=== PATIENT | female | born 1970 | race Caucasian/White ===

== ENCOUNTER 2020-09-08 10:22 | Outpatient (REF) | payer MEDICARE, MEDICAID, SELFPAY ==
[2020-09-08 15:35] LABS: TSH 16.31 uIU/mL (0.36-3.74)
== END 2020-09-08 10:23 | disposition home or self-care (01) ==
LOC: NCHCN 10:22
PROVIDERS: PCP Physician Assistant; Visit Provider Physician Assistant
DX: E03.9 Hypothyroidism, unspecified (principal)
CPT/HCPCS: 84443

== ENCOUNTER 2020-11-09 19:27 | Outpatient (REF) | payer MEDICARE, MEDICAID, SELFPAY ==
[2020-11-09 17:07] LABS: TSH 3.36 uIU/mL (0.36-3.74)
== END 2020-11-09 19:28 | disposition home or self-care (01) ==
LOC: NCHCN 19:27
PROVIDERS: PCP Physician Assistant; Visit Provider Physician Assistant
DX: E03.9 Hypothyroidism, unspecified (principal)
CPT/HCPCS: 84443

== ENCOUNTER 2021-11-17 21:10 | Outpatient (REF) | payer MEDICARE, MEDICAID, SELFPAY ==
[2021-11-17 20:38] LABS: TSH 7.99 uIU/mL (0.36-3.74); Uric Acid 5.8 mg/dL (2.6-6.0)
== END 2021-11-17 21:11 | disposition home or self-care (01) ==
LOC: LBN 21:10
PROVIDERS: PCP Physician Assistant; Visit Provider Physician Assistant
DX: E03.9 Hypothyroidism, unspecified (principal); M25.561 Pain in right knee
CPT/HCPCS: 84443; 84550

== ENCOUNTER 2022-01-25 18:47 | Outpatient (REF) | payer OTHER, MEDICAID, SELFPAY ==
[2022-01-25 15:13] LABS: Anion Gap 9.5 mmol/L (3-11); BUN 33 mg/dL (7-18); CO2 27.5 mmol/L (21.0-32.0); CREATININE 1.3 mg/dL (0.55-1.02); Chloride 101 mmol/L (98-107); Estimated GFR 43.54 (mL/min/1.73m2); Glucose 107 mg/dL (74-106); Potassium 4.4 mmol/L (3.5-5.1); Sodium 138 mmol/L (136-145); TSH 20.44 uIU/mL (0.36-3.74)
== END 2022-01-25 18:48 | disposition home or self-care (01) ==
LOC: NCHCN 18:47
PROVIDERS: PCP Physician Assistant; Visit Provider Physician Assistant
DX: E03.9 Hypothyroidism, unspecified (principal)
CPT/HCPCS: 80048; 84443

== ENCOUNTER 2022-07-26 16:42 | Outpatient (REF) | payer OTHER, MEDICAID, SELFPAY ==
[2022-07-26 19:32] LABS: Anion Gap 8.8 mmol/L (3-11); BUN 12 mg/dL (7-18); CO2 26.2 mmol/L (21.0-32.0); CREATININE 1.1 mg/dL (0.55-1.02); Calcium 9.6 mg/dL (8.5-10.1); Chloride 104 mmol/L (98-107); Glucose 120 mg/dL (74-106); Potassium 4.8 mmol/L (3.5-5.1); Sodium 139 mmol/L (136-145)
== END 2022-07-26 16:43 | disposition home or self-care (01) ==
LOC: NCHCN 16:42
PROVIDERS: PCP Physician Assistant; Visit Provider Nurse Practitioner Family
DX: R94.4 Abnormal results of kidney function studies (principal); R73.09 Other abnormal glucose
CPT/HCPCS: 80048

== ENCOUNTER 2022-12-03 15:31 | Emergency (ER) | payer MEDICARE, MEDICAID, SELFPAY ==
[2022-12-03 15:34] VITALS: BP 136/91; PULSE 107; RESP 18; TEMP 37.2; O2SAT 92
--- NOTE | 2022-12-03 15:43 | ED.GENADUL_ITS ---
Discharge Plan Disposition Patient Disposition: Home Condition: Improving Discharge Details Clinical Impression: Low back pain radiating to both legs Primary Care Provider: Rico Szymanski ED Provider: Silvestre Metz Meds and New Rx's Prescriptions: New prednisone 20 mg tablet 40 mg PO DAILY Qty: 8 0RF Rx Instructions: to start 12/04/22 hydrocodone-acetaminophen 10-325 mg tablet 1 tab PO Q6H PRN (Reason: pain) Qty: 10 0RF orphenadrine citrate 100 mg tablet extended release 100 mg PO BID Qty: 10 0RF lidocaine 5 % adhesive patch,medicated 1 patch topical DAILY Qty: 15 0RF Rx Instructions: leave on most painful area for up to 12 hrs Continued clonazepam [Klonopin] 0.5 mg Tablet 0.5 mg PO BID quetiapine [Seroquel] 200 mg Tablet 200 mg PO TID levothyroxine 100 mcg Tablet 100 mcg PO DAILY albuterol 90 mcg/actuation Aerosol 90 mcg INHALATION PRN PRN lamotrigine [Lamictal] 100 mg Tablet 100 mg PO BID Discharge Instructions Instructions: Sciatica (ED) Additional Instructions: You presented to the ED with low back pain radiating down both legs consistent with sciatica. We will continue to prednisone and she cannot take nonsteroidals and this will help with inflammation. You may take hydrocodone with acetaminophen every 6 hours. Take an extra strength Tylenol with the prescribed hydrocodone when you needed. We will also prescribe orphenadrine for muscle relaxation and lidocaine patch to help with discomfort. You will need to follow-up with primary care on Monday. Return to the ED for any bladder or bowel dysfunction, weakness, numbness, other concerns. Medical Decision Making Patient presenting with low back pain radiating down the both legs suggestive of sciatica. She is intact with normal strength and sensation and no bladder or bowel complaints. She has difficulty ambulating because of pain. Reports being unable to take nonsteroidals. I did look her up on the [facility] site. Patient has been on Suboxone in the past for pain control per the patient not for any drug addiction problems. It did not work so she has not been on anything for the past month. Patient given IM injection of orphenadrine and oral hydrocodone/acetaminophen. Patient reports some improvement but not a lot. Lidocaine patch applied and 500 of acetaminophen given. Patient improved at this point with continued pain but much more tolerable. Discussed follow-up with primary care on Monday. We will continue on steroids for presumed inflammation causing the sciatica. Will give regimen for 10 hydrocodone/acetaminophen, orphenadrine. I did review her dater in the [facility] site. Will supplement with acetaminophen. We will also prescribe lidocaine patches. Return precautions provided. HPI General Mode of arrival: wheelchair . Date/Time Provider Initiated Documentation: 12/03/22 15:40 . Limitations to Documentation: no limitations . Information obtained by: patient . HPI Narrative: Patient presents to ED with complaint of low back pain radiating down both legs. Pain began 2 or 3 days ago and is atraumatic. She does have a history of back pain and degenerative disc disease. She denies any numbness, weakness, bladder or bowel dysfunction, abdominal pain, fever. She was seen at [facility] earlier today and was given prednisone orally and discharged with cyclobenzaprine. Patient and family unhappy with care at [facility]. She is unable to take nonsteroidals. Related Data Home Medications Medication Instructions Recorded Confirmed albuterol 90 mcg/actuation aerosol 90 mcg inhalation PRN PRN 12/03/22 12/03/22 inhaler clonazepam 0.5 mg tablet (Klonopin) 0.5 mg PO BID 12/03/22 12/03/22 hydrocodone 10 mg-acetaminophen 1 tab PO Q6H PRN pain #10 tabs 12/03/22 325 mg tablet lamotrigine 100 mg tablet 100 mg PO BID 12/03/22 12/03/22 (Lamictal) levothyroxine 100 mcg tablet 100 mcg PO DAILY 12/03/22 12/03/22 lidocaine 5 % topical patch 1 patch topical DAILY #15 ea 12/03/22 orphenadrine citrate 100 mg 100 mg PO BID #10 tabs 12/03/22 tablet,extended release prednisone 20 mg tablet 40 mg PO DAILY #8 tabs 12/03/22 quetiapine 200 mg tablet (Seroquel) 200 mg PO TID 12/03/22 12/03/22 Previous Rx's Medication Instructions Recorded hydrocodone 10 mg-acetaminophen 1 tab PO Q6H PRN pain #10 tabs 12/03/22 325 mg tablet lidocaine 5 % topical patch 1 patch topical DAILY #15 ea 12/03/22 orphenadrine citrate 100 mg 100 mg PO BID #10 tabs 12/03/22 tablet,extended release prednisone 20 mg tablet 40 mg PO DAILY #8 tabs 12/03/22 Allergies Allergy/AdvReac Type Severity Reaction Status Date / Time erythromycin base Allergy Unverified 12/03/22 15:37 Penicillins Allergy Unverified 12/03/22 15:37 Sulfa (Sulfonamide Allergy Unverified 12/03/22 15:37 Antibiotics) NSAIDS (Non-Steroidal AdvReac Skin Rash Unverified 12/03/22 16:51 Anti-Inflamma General Stated Complaint: Nk/Back Pain CLAYTON: 3 Review of Systems Narrative: Per HPI PFSH All Active Problems (Updated 12/03/22 @ 17:21 by Silvestre Metz MD) Low back pain radiating to both legs (Acute) Medical History History of behavioral and mental health problems Thyroid disease Social History Smoking/Tobacco Use Status: Current every day Tobacco Type: cigarettes Smoking risk assessment performed?: Yes Alcohol Intake: never Drug use: Occasionally Substance use type: marijuana Exam Narrative Exam Narrative: Const: Obese female in NAD. HEENT: NC/AT. Normal facial exam. Eyes: Normal conjunctiva and sclera. Neck: Supple. Trachea midline. Lungs: Normal respiratory effort. Cor: RRR. Good radial pulses. Back: Lumbar pain with movement, no midline tenderness. Neuro: A+O x 3. Normal speech, mentation. Cranial nerves II - XII grossly intact. No gross motor or sensory deficit. BLE strength is normal. Sensation in tact. Ext: No C/C/E. Course Vital Signs Vital signs: Vital Signs Temperature 98.9 F 12/03/22 15:34 Pulse 107 H 12/03/22 15:34 Respiratory Rate 18 12/03/22 15:34 Blood Pressure 136/91 H 12/03/22 15:34 Pulse Oximetry 92 12/03/22 15:34 Temperature 98.9 F 12/03/22 15:34 Temperature Source Oral 12/03/22 15:34 Pulse 107 H 12/03/22 15:34 Respiratory Rate 18 12/03/22 15:34 Respiratory Effort Normal, Non-Labored 12/03/22 15:36 Blood Pressure 136/91 H 12/03/22 15:34 Pulse Oximetry 92 12/03/22 15:34 Oxygen Delivery Method Room Air 12/03/22 15:34 Oxygen Flow Rate 0 12/03/22 15:34
[2022-12-03] MEDS: HYDROcodone 10/Acetaminophen 325 TAB PO (16:13)
[2022-12-03] MEDS: Orphenadrine 60 MG/2 ML VIAL IM (16:13)
[2022-12-03] MEDS: Acetaminophen 500 MG TAB PO (16:55)
[2022-12-03] MEDS: Lidocaine 5% Patch 1 PATCH TP (16:57)
[2022-12-03 17:38] VITALS: BP 130/85; PULSE 107; RESP 18; TEMP 37.2; O2SAT 92
== END 2022-12-03 17:42 | disposition home or self-care (01) ==
PROVIDERS: Emergency Provider Emergency Medicine; PCP Internal Medicine
DX: M54.59 Other low back pain (principal)
CPT/HCPCS: 96372; 99284; J2360; J3490

== ENCOUNTER 2022-12-18 13:00 | Emergency (ER) | payer MEDICARE, MEDICAID, SELFPAY ==
[2022-12-18] VITALS (38 sets, daily range): BP systolic 87–124; BP diastolic 43–76; PULSE 74–142; RESP 16–20; O2SAT 81–96
--- NOTE | 2022-12-18 13:59 | DI.CT_ITS ---
Exam(s) CT THORACIC LUMBAR SPINE WO EXAM: CT THORACIC LUMBAR SPINE WO CLINICAL HISTORY: back pain, difficulty amb, radiating bilat. TECHNIQUE: Imaging Protocol: Axial computed tomography images with coronal and sagittal reformatted images were created and reviewed. COMPARISON: No exams were available for comparison FINDINGS: The examination is limited due to patient motion artifact. Bones: No fractures or dislocations are seen. In the thoracic spine, multilevel degenerative changes are present. No acute fractures or subluxations are seen. In the lumbar spine, there is mild retrol isthesis of L2 on L3, L3 on L4 and L5 on S1. Multilevel degenerative changes are seen with joint spac e narrowing, vacuum discs and endplate osteophytes. Facet arthropathy is present. There is mild daisha tral spinal canal at L2-3 and L4-L5. Multilevel neural foraminal stenosis is seen. Soft tissues: Note is made of fatty infiltration of the liver and right nephrolithiasis. Emphysemato us changes are seen in the lungs. IMPRESSION: 1. No acute fracture or subluxation in the thoracic or lumbar spine. 2. Multilevel degenerative changes are seen in the thoracic and lumbar spine as described above. 3. Consider MRI of the lumbar spine for further evaluation. RADIATION DOSE DELIVERED: 2,296.32mGy.cm Total DLP DATA REPOSITORY: All CT scans at this facility are submitted to the National Radiology Data Registry (NRDR) Dose Index Registry (DIR) with the [employer] ([employer]). RADIATION OPTIMIZATION: All CT scans at this facility use at least one of these dose optimization te chniques: automated exposure control; mA and/or kV adjustment per patient size (includes targeted exa ms where dose is matched to clinical indication); or iterative reconstruction.
[2022-12-18] MEDS: Orphenadrine 60 MG/2 ML VIAL IVP (14:02)
[2022-12-18] MEDS: Dexamethasone 4 MG/ML VIAL IVP (14:02)
[2022-12-18 14:14] LABS: Abs Immature Grans 0.06 10^3/uL (0.0-0.06); Absolute Basophil Count 0.04 10^3/uL (0.0-0.2); Absolute Eosinophil Count 0.01 10^3/uL (0.0-0.7); Absolute Lymphocyte Count 2.34 10^3/uL (1.2-3.4); Absolute Monocyte Count 0.77 10^3/uL (0.1-0.8); Absolute Neutrophil Count 7.15 10^3/uL (1.2-6.7); Basophils % 0.4; Eosinophils % 0.1; HCT 48.3 % (36.0-46.0); HGB 15.9 g/dL (11.2-15.7); Immature Grans % 0.6; Lymphocytes % 22.6; MCH 31.5 pg (27.0-33.0); MCHC 32.9 % (32.0-36.0); MCV 96 fL (80-95); MPV 9.8 fL (8.0-11.0); Monocytes % 7.4; Neutrophils % 68.9; Platelet Count 203 10^3/uL (130-400); RBC 5.04 10^6/uL (3.93-5.22); RDW 14.8 % (11.7-14.6); RDW-SD 52.5 fL; WBC 10.37 10^3/uL (4.4-10.8)
--- NOTE | 2022-12-18 14:33 | NUR.NOTE ---
Nursing Note: patient requesting pain medications they gave me vicodin last time; provider notified.
--- NOTE | 2022-12-18 14:40 | DI.VRAD_ITS ---
PROCEDURE INFORMATION: Exam: CT Thoracic Spine Without Contrast Exam date and time: 12/18/2022 1:51 PM Age: 52 years old Clinical indication: Other: Back pain, difficulty amb, radiating bilat TECHNIQUE: Imaging protocol: Computed tomography of the thoracic spine without contrast. Radiation optimization: All CT scans at this facility use at least one of these dose optimization techniques: automated exposure control; mA and/or kV adjustment per patient size (includes targeted exams where dose is matched to clinical indication); or iterative reconstruction. COMPARISON: No relevant prior studies available. FINDINGS: Bones/joints: Alignment of the spine is normal. There are no acute fractures. Multilevel mild degenerative spondylosis changes. Soft tissues: Unremarkable. Lungs: Emphysematous lung disease. IMPRESSION: 1. No acute findings. 2. Emphysematous lung disease. PROCEDURE INFORMATION: Exam: CT Lumbar Spine Without Contrast Exam date and time: 12/18/2022 1:51 PM Age: 52 years old Clinical indication: Other: Back pain, difficulty amb, radiating bilat TECHNIQUE: Imaging protocol: Computed tomography of the lumbar spine without contrast. Radiation optimization: All CT scans at this facility use at least one of these dose optimization techniques: automated exposure control; mA and/or kV adjustment per patient size (includes targeted exams where dose is matched to clinical indication); or iterative reconstruction. COMPARISON: No relevant prior studies available. FINDINGS: Bones/joints: Retrolisthesis L2 on L3, L3 on L4 and L5 on S1. No acute fractures. Disc degeneration with vacuum disc L2-L3, L4-L5 and L5-S1. Multilevel foraminal stenosis. Mild central canal narrowing L2-L3 and L4-L5. Liver: Fatty infiltration of the liver. Kidneys and ureters: Right nephrolithiasis. Soft tissues: Unremarkable. IMPRESSION: Multilevel disc degeneration. Multilevel foraminal narrowing. Consider MRI of the lumbar spine for further evaluation. Dictated and Authenticated by: Nahun Ramirez MD. Ordering:JOHN Liu MD
[2022-12-18 14:51] LABS: ALT 52 U/L (14-59); AST 31 U/L (15-37); Alkaline Phosphatase 112 U/L (46-116); Anion Gap 7.2 mmol/L (3-11); BUN 9 mg/dL (7-18); Bilirubin, Total 0.3 mg/dL (0.2-1.0); CO2 27.8 mmol/L (21.0-32.0); CREATININE 1.1 mg/dL (0.55-1.02); Calcium 9.1 mg/dL (8.5-10.1); Chloride 102 mmol/L (98-107); Estimated GFR 61.22 (mL/min/1.73m2); Glucose 205 mg/dL (74-106); Potassium 3.4 mmol/L (3.5-5.1); Sodium 137 mmol/L (136-145); Total Protein 6.9 g/dL (6.4-8.2)
[2022-12-18] MEDS: oxyCODONE 5 MG TAB PO (14:53)
--- NOTE | 2022-12-18 14:55 | ED.GENADUL_ITS ---
Discharge Plan Disposition Patient Disposition: Home Discharge Details Clinical Impression: Back pain Primary Care Provider: Silvestre Lakhani ED Provider: Alexa Luke Home Meds and New Rx's Prescriptions: New dexamethasone 4 mg tablet 4 mg PO DAILY Qty: 7 0RF Rx Instructions: Take 1 tab daily for 5 days followed by half a tab daily for 3 days and then discontinue Continued prazosin [Minipress] 5 mg Capsule 5 mg PO HS clonazepam [Klonopin] 0.5 mg Tablet 0.5 mg PO BID quetiapine [Seroquel] 200 mg Tablet 200 mg PO TID levothyroxine 100 mcg Tablet 100 mcg PO DAILY albuterol 90 mcg/actuation Aerosol 90 mcg INHALATION PRN PRN lamotrigine [Lamictal] 100 mg Tablet 100 mg PO BID prednisone 20 mg tablet 40 mg PO DAILY Qty: 8 0RF Rx Instructions: to start 12/04/22 hydrocodone-acetaminophen 10-325 mg tablet 1 tab PO Q6H PRN (Reason: pain) Qty: 10 0RF orphenadrine citrate 100 mg tablet extended release 100 mg PO BID Qty: 10 0RF lidocaine 5 % adhesive patch,medicated 1 patch topical DAILY Qty: 15 0RF Rx Instructions: leave on most painful area for up to 12 hrs Discharge Instructions Instructions: Back Pain (ED) Additional Instructions: I placed you on the list to follow-up with pain management Please take the prednisone as prescribed, please have your blood sugar rechecked by your doctor is mildly elevated, prednisone and Decadron can sometimes increase your blood sugar so this should definitely be rechecked within a week of completing your Decadron Take the Valium that you are prescribed at your visit yesterday as needed, be cautious because this is addictive and please follow-up with your doctor for MRI and pain management Take a multivitamin supplement daily Referrals: Silvestre Lakhani [Primary Care Provider] - Discharge Data Discharge Date/Time-TO BE ENTERED AT DEPARTURE: 12/18/22 15:21 Medical Decision Making 52-year-old female is a return visit to her facility with report of back pain with radiation and reporting paresthesias She appears uncomfortable on assessment, given her age and current complaints, I did a complete neurological assessment including rectal exam which showed adequate rectal tone, no saddle anesthesia, DTRs intact to bilateral lower extremities, strength and sensation intact distally Exam at time of my assessment is inconsistent with cauda equina syndrome, I did order CT scan which shows evidence of foraminal stenosis, patient was encouraged to follow-up with the MRI that is scheduled She was given a taper of Decadron I also reviewed her PDMP and it looks like she was actually evaluated at [facility] yesterday and given Valium so no additional controlled substances will be initiated at this time Patient was not forthcoming with being evaluated yesterday at [facility] of note Patient discharged home in stable condition with stable vitals, exam inconsistent with cauda equina syndrome, with close outpatient follow-up recommended Placed on pain care referral list Return precautions reviewed and patient expressed understanding HPI General Date/Time Provider Initiated Documentation: 12/18/22 13:09 . HPI Narrative: This 52-year-old female presents with chronic back pain with radiation down bilateral legs, states she has paresthesias in her upper pelvic region and leg spasms. She reportedly was evaluated 2 weeks ago and had excellent care at our facility which she received steroids and opiate analgesia. She states the steroids helped her pain. She denies any changes in bowel or bladder, she denies any new weakness to her extremities. She uses a walker with ambulation. She denies any new falls or injuries. Related Data Home Medications Medication Instructions Recorded Confirmed albuterol 90 mcg/actuation aerosol 90 mcg inhalation PRN PRN 12/03/22 12/18/22 inhaler clonazepam 0.5 mg tablet (Klonopin) 0.5 mg PO BID 12/03/22 12/18/22 hydrocodone 10 mg-acetaminophen 1 tab PO Q6H PRN pain #10 tabs 12/03/22 325 mg tablet lamotrigine 100 mg tablet 100 mg PO BID 12/03/22 12/18/22 (Lamictal) levothyroxine 100 mcg tablet 100 mcg PO DAILY 12/03/22 12/18/22 lidocaine 5 % topical patch 1 patch topical DAILY #15 ea 12/03/22 orphenadrine citrate 100 mg 100 mg PO BID #10 tabs 12/03/22 tablet,extended release prednisone 20 mg tablet 40 mg PO DAILY #8 tabs 12/03/22 quetiapine 200 mg tablet (Seroquel) 200 mg PO TID 12/03/22 12/18/22 dexamethasone 4 mg tablet 4 mg PO DAILY #7 tabs 12/18/22 prazosin 5 mg capsule (Minipress) 5 mg PO HS 12/18/22 12/18/22 Previous Rx's Medication Instructions Recorded hydrocodone 10 mg-acetaminophen 1 tab PO Q6H PRN pain #10 tabs 12/03/22 325 mg tablet lidocaine 5 % topical patch 1 patch topical DAILY #15 ea 12/03/22 orphenadrine citrate 100 mg 100 mg PO BID #10 tabs 12/03/22 tablet,extended release prednisone 20 mg tablet 40 mg PO DAILY #8 tabs 12/03/22 dexamethasone 4 mg tablet 4 mg PO DAILY #7 tabs 12/18/22 Allergies Allergy/AdvReac Type Severity Reaction Status Date / Time erythromycin base Allergy Unverified 12/03/22 15:37 Penicillins Allergy Unverified 12/03/22 15:37 Sulfa (Sulfonamide Allergy Unverified 12/03/22 15:37 Antibiotics) ketorolac [From Toradol] AdvReac Skin Rash Unverified 12/18/22 13:29 NSAIDS (Non-Steroidal AdvReac Skin Rash Unverified 12/03/22 16:51 Anti-Inflamma tramadol AdvReac Skin Rash Unverified 12/18/22 13:29 General Stated Complaint: Orthopedic CLAYTON: 3 PFSH All Active Problems (Updated 12/18/22 @ 15:01 by VANDANA Justice) Low back pain radiating to both legs (Acute) Back pain (Acute) Medical History History of behavioral and mental health problems Thyroid disease Social History Smoking/Tobacco Use Status: Current every day Tobacco Type: cigarettes Years smoked: 37 Smoking risk assessment performed?: Yes Alcohol Intake: never Drug use: Occasionally Substance use type: marijuana Housing: house Do you feel safe at home: Yes Do you feel safe in your relationship?: Yes Course Vital Signs Vital signs: Vital Signs Pulse 83 12/18/22 13:06 Respiratory Rate 20 12/18/22 13:06 Blood Pressure 115/67 12/18/22 13:06 Pulse Oximetry 94 12/18/22 13:06 Pulse 76 12/18/22 14:52 Respiratory Rate 18 12/18/22 14:52 Respiratory Effort Normal, Non-Labored 12/18/22 13:13 Blood Pressure 112/67 12/18/22 14:52 Blood Pressure Mean 62 12/18/22 14:11 Pulse Oximetry 95 12/18/22 14:52 Oxygen Delivery Method Room Air 12/18/22 14:52 Oxygen Flow Rate 0 12/18/22 14:52 Pain Level 9 12/18/22 14:53 Lab/Test Results Lab/Test Results: Laboratory Tests Range/Units 12/18/22 12/18/22 14:05 14:05 WBC (4.4-10.8) 10^3/uL 10.37 RBC (3.93-5.22) 10^6/uL 5.04 Hgb (11.2-15.7) g/dL 15.9 H Hct (36.0-46.0) % 48.3 H MCV (80-95) fL 96 H MCH (27.0-33.0) pg 31.5 MCHC (32.0-36.0) % 32.9 RDW (11.7-14.6) % 14.8 H Plt Count (130-400) 10^3/uL 203 MPV (8.0-11.0) fL 9.8 Immature Gran % 0.6 Neutrophils % 68.9 Lymphocytes % 22.6 Monocytes % 7.4 Eosinophils % 0.1 Basophils % 0.4 Nucleated RBC % (0.0-0.3) % 0.0 Absolute Neutrophils (1.2-6.7) 10^3/uL 7.15 H Absolute Lymphocytes (1.2-3.4) 10^3/uL 2.34 Absolute Monocytes (0.1-0.8) 10^3/uL 0.77 Absolute Eosinophils (0.0-0.7) 10^3/uL 0.01 Absolute Basophils (0.0-0.2) 10^3/uL 0.04 Sodium (136-145) mmol/L 137 Potassium (3.5-5.1) mmol/L 3.4 L Chloride (98-107) mmol/L 102 Carbon Dioxide (21.0-32.0) mmol/L 27.8 Anion Gap (3-11) mmol/L 7.2 BUN (7-18) mg/dL 9 Creatinine (0.55-1.02) mg/dL 1.1 H Est GFR (CKD-EPI 2020) (mL/min/1.73m2) 61.22 Glucose (74-106) mg/dL 205 H Calcium (8.5-10.1) mg/dL 9.1 Total Bilirubin (0.2-1.0) mg/dL 0.3 AST (15-37) U/L 31 ALT (14-59) U/L 52 Alkaline Phosphatase (46-116) U/L 112 Total Protein (6.4-8.2) g/dL 6.9 Albumin (3.4-5.0) g/dL 3.0 L
--- NOTE | 2022-12-18 15:05 | NUR.NOTE ---
Referral per Alexa Luke to care management to establish care with pain management for the next avail. Put the referral in the regular senior care provider's box for f/u assistance. Nursing Note:
== END 2022-12-18 15:21 | disposition home or self-care (01) ==
PROVIDERS: Emergency Provider Physician Assistant; PCP Internal Medicine
DX: M54.9 Dorsalgia, unspecified (principal)
CPT/HCPCS: 80053; 96374; 96375; 99284; J2360; 72128; 72131; 85025; J1100

== ENCOUNTER 2024-05-24 22:20 | Outpatient (REF) | payer MEDICARE, MEDICAID, SELFPAY ==
[2024-05-24 21:45] LABS: Bacteria Few HPF (Negative); C & S Indicated? C&S Done As Ordered; Casts Negative LPF (Negative); Crystals Negative HPF (Negative); Epithelial Cells Few HPF (Negative); Mucus Negative (Negative)
== END 2024-05-24 22:21 | disposition home or self-care (01) ==
LOC: LBN 22:20
PROVIDERS: PCP Internal Medicine; Visit Provider Physician Assistant Medical
DX: R30.0 Dysuria (principal)
CPT/HCPCS: 81015; 87086

== ENCOUNTER 2025-02-27 17:26 | Emergency (ER) | payer MEDICARE, SELFPAY ==
[2025-02-27 17:31] VITALS: BP 114/77; PULSE 87; RESP 16; TEMP 36.9; O2SAT 92
--- NOTE | 2025-02-27 18:39 | W.ED.GENAD ---
Discharge Plan Disposition Patient Disposition: Home Condition: Stable Discharge Details Clinical Impression: Leg pain, right Primary Care Provider: Silvestre Lakhani ED Provider: Nathan Mariscal Home Meds and New Rx's Prescriptions: Continued diazepam 5 mg tablet 5 mg PO DAILY PRN diazepam 10 mg tablet 10 mg PO DAILY PRN estradiol 0.075 mg/24 hr patch weekly 1 patch transdermal QWEEK fluticasone propion-salmeterol 250-50 mcg/dose blister with device 1 inh inhalation BID gabapentin 400 mg capsule 800 mg PO BID hydroxyzine HCl 50 mg tablet 50 mg PO QHS Incruse Ellipta 62.5 mcg/actuation blister with device 1 inh inhalation DAILY levothyroxine 100 mcg tablet 150 mcg PO DAILY methocarbamol 500 mg tablet 500 mg PO TID quetiapine [Seroquel] 200 mg tablet 300 mg PO TID buprenorphine-naloxone [Suboxone] 4-1 mg film 1 film buccal BID Rx Instructions: place 1 strip/tab under (each) side of tongue Vraylar 3 mg capsule 3 mg PO DAILY Vraylar 4.5 mg capsule 4.5 mg PO DAILY ipratropium-albuterol 0.5 mg-3 mg(2.5 mg base)/3 mL solution for nebulization 3 ml inhalation QID PRN prazosin [Minipress] 5 mg Capsule 5 mg PO HS albuterol 90 mcg/actuation Aerosol 90 mcg INHALATION PRN PRN Eliquis 5 mg tablet 5 mg PO BID Patient Comments: TAKE 2 TABLETS BY MOUTH TWICE DAILY FOR 6 DAYS THEN 1 TWICE DAILY FOR 30 DAYS Discharge Instructions Instructions: Leg Pain (ED) Additional Instructions: Your laboratory values did not reveal any obvious infection, no clear indication to initiate antibiotics. Your D-dimer is elevated although this comes at no surprise given your recent diagnosis of DVT and PE. I have filled out an outpatient ultrasound for your right lower extremity to be done tomorrow. When this is completed you will return to the ER for results. Continue your Eliquis as directed. Please watch for new or worsening symptoms, especially chest pain, shortness of breath, etc. and return immediately to the ER. HPI General Mode of arrival: ambulatory. Date/Time Provider Initiated Documentation: 02/27/25 17:44. Limitations to Documentation: no limitations. Information obtained by: patient. History of Present Illness 54 year old F presents to the emergency department with the chief complaint of Right leg pain, described as moderate, with intensity rated at 7. Quality is described as aching, and is localized to the right and lower extremity. Patient reports no radiation. Patient started experiencing this month(s) (2) and it has been intermittent. No relieving factors improve symptom(s), No exacerbating factors reported . Patient notes no other symptoms.. Patient did receive the following treatments prior to arrival, none Related Data Home Medications ?Medication ?Instructions ?Recorded ?Confirmed albuterol 90 mcg/actuation aerosol 90 mcg inhalation PRN PRN 12/03/22 02/27/25 inhaler prazosin 5 mg capsule (Minipress) 5 mg PO HS 12/18/22 02/27/25 buprenorphine 4 mg-naloxone 1 mg 1 film buccal BID 07/10/24 02/27/25 sublingual film (Suboxone) cariprazine 3 mg capsule (Vraylar) 3 mg PO DAILY 07/10/24 02/27/25 cariprazine 4.5 mg capsule 4.5 mg PO DAILY 07/10/24 02/27/25 (Vraylar) diazepam 10 mg tablet 10 mg PO DAILY PRN 07/10/24 02/27/25 diazepam 5 mg tablet 5 mg PO DAILY PRN 07/10/24 02/27/25 estradiol 0.075 mg/24 hr weekly 1 patch transdermal QWEEK 07/10/24 02/27/25 transdermal patch fluticasone 250 mcg-salmeterol 50 1 inh inhalation BID 07/10/24 02/27/25 mcg/dose blistr powdr for inhalation gabapentin 400 mg capsule 800 mg PO BID 07/10/24 02/27/25 hydroxyzine HCl 50 mg tablet 50 mg PO QHS 07/10/24 02/27/25 levothyroxine 100 mcg tablet 150 mcg PO DAILY 07/10/24 02/27/25 methocarbamol 500 mg tablet 500 mg PO TID 07/10/24 02/27/25 quetiapine 200 mg tablet (Seroquel) 300 mg PO TID 07/10/24 02/27/25 umeclidinium 62.5 mcg/actuation 1 inh inhalation DAILY 07/10/24 02/27/25 blister powder for inhalation (Incruse Ellipta) ipratropium 0.5 mg-albuterol 3 mg 3 ml inhalation QID PRN 07/15/24 02/27/25 (2.5 mg base)/3 mL nebulization soln apixaban 5 mg tablet (Eliquis) 5 mg PO BID 02/27/25 02/27/25 Allergies Allergy/AdvReac Type Severity Reaction Status Date / Time erythromycin base Allergy Severe Anaphylaxis Unverified 02/27/25 17:36 Sulfa (Sulfonamide Allergy Severe Anaphylaxis Unverified 02/27/25 17:36 Antibiotics) azithromycin Allergy Intermediate Skin Rash Verified 02/27/25 17:36 Penicillins Allergy Intermediate Skin Rash Unverified 02/27/25 17:36 sulindac Allergy Intermediate Hives Verified 02/27/25 17:36 amitriptyline AdvReac Intermediate Cardiac Verified 02/27/25 17:36 Dysrhythmia carbamazepine AdvReac Intermediate Other (See Verified 02/27/25 17:36 Comment) cefpodoxime AdvReac Intermediate Other (See Verified 02/27/25 17:36 Comment) sumatriptan AdvReac Intermediate Other (See Verified 02/27/25 17:36 Comment) topiramate AdvReac Intermediate Nausea Verified 02/27/25 17:36 fluoxetine AdvReac Mild Agitation Verified 02/27/25 17:36 baclofen AdvReac Unknown Unknown Verified 02/27/25 17:36 bupropion AdvReac Unknown Unknown Verified 02/27/25 17:36 levofloxacin AdvReac Unknown Unknown Verified 02/27/25 17:36 ketorolac (From Toradol) AdvReac Skin Rash Unverified 02/27/25 17:36 NSAIDS (Non-Steroidal AdvReac Skin Rash Unverified 02/27/25 17:36 Anti-Inflamma tramadol AdvReac Skin Rash Unverified 02/27/25 17:36 General Stated Complaint: Vascular CLAYTON: 3 Review of Systems Constitutional Constitutional: Denies fatigue, Denies fever(s), Denies headache(s) and Denies weakness ENT Ears, Nose, Mouth, and Throat: Denies headache(s) and Denies neck pain Cardiovascular Cardiovascular: Denies chest pain and Denies dyspnea Respiratory Respiratory: Denies cough and Denies dyspnea Gastrointestinal Gastrointestinal: Denies abdominal pain, Denies nausea and Denies vomiting Genitourinary Genitourinary: Denies dysuria Musculoskeletal Musculoskeletal: Denies neck pain and Denies tingling Integumentary/Breasts Skin/Breast: Reports rash Neurologic Neurologic: Denies headache(s), Denies tingling and Denies weakness Endocrine Endocrine: Denies fatigue Hematologic/Lymphatic Hematologic/Lymphatic: Reports easy bleeding and Reports easy bruising Exam Const General: cooperative, healthy appearing, comfortable and no acute distress Orientation: alert, awake and oriented x3 HENMT Head: normal to inspection, normocephalic and atraumatic Face and sinus: normal facial exam Mouth: moist mucous membranes Eyes General: appearance normal, both eyes and all related structures Conjunctivae: conjunctivae normal Neck Neck: normal visual inspection, full ROM, trachea midline and supple Resp Effort & Inspection: normal respiratory effort and able to speak in complete sentences Auscultation: clear to auscultation bilaterally Cardio Rate: regular rate Rhythm: regular rhythm GI Palpation: soft and nontender Skin General skin exam: erythema Neuro General: patient alert, patient awake, moves all extremities and no focal motor deficits Cognition: normal cognition Speech: speech normal Gait: antalgic Sensory Exam: no sensory deficits noted Extrem General: full ROM and capillary refill normal Other: Right lower extremity with mild swelling when compared to the contralateral side. There is mild anterior mid to distal tibia erythema with mild excoriations, noncircumferential. This area is diffusely tender. No lymphangitic streaking. Describes a knot to her mid to distal lateral quadriceps, I am unable to appreciate this. Calf is soft, easily compressed, nontender. Negative Brody. Normal pedal pulse and capillary refill. Psych Appearance: grossly normal Mental Status: mental status grossly normal Course Vital Signs Vital signs: Vital Signs Temperature 36.9 C 02/27/25 17:31 Pulse 87 02/27/25 17:31 Respiratory Rate 16 02/27/25 17:31 Blood Pressure 114/77 02/27/25 17:31 Pulse Oximetry 92 02/27/25 17:31 Temperature 36.9 C 02/27/25 17:31 Pulse 87 02/27/25 17:31 Respiratory Rate 16 02/27/25 17:31 Blood Pressure 114/77 02/27/25 17:31 Pulse Oximetry 92 02/27/25 17:31 Oxygen Delivery Method Room Air 02/27/25 17:31 Oxygen Flow Rate 0 02/27/25 17:31 Pain Level 10 02/27/25 17:31 Medical Decision Making This is a 54-year-old female, past medical history of thyroid disease, and back pain, who was diagnosed with DVT/PE at [facility] about 2 months ago. Since that time she has been taking Eliquis as directed, has not missed any doses. Over the past 2 months that she has had intermittent right leg redness, pain, and swelling. She tells me she brought this to the attention of her PCP about a month ago and had blood work and an outpatient ultrasound which was all negative. She felt like her symptoms were improving a week ago but then it returned over the past few days. She denies any injury. She denies any fever, shortness of breath, body aches, chest pain. She is an active smoker, states that her O2 sat at rest is typically in the high 80s, and she does wear supplemental O2 overnight when sleeping. Clinically she appears well, nontoxic. No evidence of tachycardia or fever. O2 sats are 92% on room air. Lungs are clear to auscultation. No evidence of bilateral leg swelling which makes cardiac or renal etiology less likely. Mild erythema which certainly could be early cellulitis although she is afebrile without any evidence of lymphangitic streaking. This has been intermittent now for 2 months. Question dependent edema. Discussed presentation and my thought process in length with patient and friend. Will plan to set her up for an outpatient right lower extremity DVT study tomorrow and have her return to the ER for those results. This evening I will obtain a CBC, coags, D-dimer, and chemistries. She is agreeable to this plan. Does request something for pain, a single dose of oxycodone was provided. White blood cell count is normal at 7.21 hemoglobin 13.9 hematocrit 42.8. PT of 10.4 INR 1.0 APTT of 27.0. D-dimer is elevated at 800. Sodium 140 potassium 3.7 chloride 103, carbon dioxide slightly elevated at 34.2. Creatinine 1.0 with a GFR of 67.78. Discussed laboratory values with patient and friend. No evidence of obvious infection, will not initiate any antibiotic therapy. D-dimer is elevated but patient is being treated for active PE and/or DVT, also D-dimer is nonspecific. This just strengthens my opinion that the patient should have a DVT study tomorrow. Given her O2 sat is at baseline, she has no chest pain, cough, shortness of breath, hemoptysis whatsoever, I do not believe it is prudent this evening to obtain CTA of her chest. Patient will return tomorrow for an outpatient ultrasound through the diagnostic imaging department and then return to the ER for results and treatment plan if necessary. Otherwise discussed the importance of continuing to follow-up with her PCP for the intermittent leg swelling, pain, erythema for the past 2 months. Encouraged to watch for new or worsening symptoms and return immediately to the ER. Will continue Eliquis as already prescribed. We did discuss if there is a new or expanding DVT, we may have to consult with hematology and discuss potential dual anticoagulation. Standard discharge and return precautions were provided. Patient understands, is agreeable to this plan, and has no additional questions or concerns upon discharge. This documentation was generated using [employer] system, please disregard any oddities of phrase or misspellings. Medical Records Medical records reviewed: Yes I reviewed the patient's medical records. Lab Data Lab results reviewed: Yes I reviewed the patient's lab results. Labs: Laboratory Tests Range/Units 02/27/25 18:58 WBC (4.4-10.8) 10^3/uL 7.21 RBC (3.93-5.22) 10^6/uL 4.39 Hgb (11.2-15.7) g/dL 13.9 Hct (36.0-46.0) % 42.8 MCV (80-95) fL 98 H MCH (27.0-33.0) pg 31.7 MCHC (32.0-36.0) % 32.5 RDW (11.7-14.6) % 14.4 Plt Count (130-400) 10^3/uL MPV (8.0-11.0) fL Immature Gran % % 0.6 Neutrophils % % 60.2 Lymphocytes % % 30.9 Monocytes % % 7.9 Eosinophils % % 0.0 Basophils % % 0.4 Nucleated RBC % (0.0-0.3) % 0.0 Absolute Neutrophils (1.2-6.7) 10^3/uL 4.34 Absolute Lymphocytes (1.2-3.4) 10^3/uL 2.23 Absolute Monocytes (0.1-0.8) 10^3/uL 0.57 Absolute Eosinophils (0.0-0.7) 10^3/uL 0.00 Absolute Basophils (0.0-0.2) 10^3/uL 0.03 PT (9.1-11.1) sec 10.4 INR (0.9-1.1) 1.0 APTT (20.6-30.2) sec 27.0 D-Dimer (<500) ng/mlFEU 800 H Sodium (136-145) mmol/L 140 Potassium (3.5-5.1) mmol/L 3.7 Chloride (98-107) mmol/L 103 Carbon Dioxide (21.0-32.0) mmol/L 34.2 H Anion Gap (3-11) mmol/L 2.8 L BUN (7-18) mg/dL 9 Creatinine (0.55-1.02) mg/dL 1.0 Est GFR (CKD-EPI 2020) (mL/min/1.73m2) 67.78 Glucose (74-106) mg/dL 168 H Calcium (8.5-10.1) mg/dL 9.3 Total Bilirubin (0.2-1.0) mg/dL 0.3 AST (15-37) U/L 19 ALT (14-59) U/L 23 Alkaline Phosphatase (46-116) U/L 93 Total Protein (6.4-8.2) g/dL 6.5 Albumin (3.4-5.0) g/dL 2.7 L PFSH All Active Problems Leg pain, right (Acute) Medical History History of behavioral and mental health problems Thyroid disease Social History Smoking/Tobacco Use Status: Current every day Tobacco Type: cigarettes Years smoked: 37 Smoking risk assessment performed?: Yes Alcohol Intake: never Drug use: Occasionally Substance use type: marijuana Housing: house Do you feel safe at home: Yes Do you feel safe in your relationship?: Yes
[2025-02-27 19:09] LABS: Abs Immature Grans 0.04 10^3/uL (0.0-0.06); HCT 42.8 % (36.0-46.0); HGB 13.9 g/dL (11.2-15.7); Immature Grans % 0.6 %; MCH 31.7 pg (27.0-33.0); MCHC 32.5 % (32.0-36.0); MCV 98 fL (80-95); RBC 4.39 10^6/uL (3.93-5.22); RDW 14.4 % (11.7-14.6); RDW-SD 51.7 fL; WBC 7.21 10^3/uL (4.4-10.8)
[2025-02-27] MEDS: oxyCODONE 5 mg/Acetaminophen 325 mg TAB 1 TAB PO (19:11)
[2025-02-27 19:21] LABS: INR 1.0 (0.9-1.1); PTT Activated 27.0 sec (20.6-30.2); Prothrombin Time 10.4 sec (9.1-11.1)
[2025-02-27 19:27] LABS: ALT 23 U/L (14-59); AST 19 U/L (15-37); Albumin 2.7 g/dL (3.4-5.0); Alkaline Phosphatase 93 U/L (46-116); Anion Gap 2.8 mmol/L (3-11); BUN 9 mg/dL (7-18); Bilirubin, Total 0.3 mg/dL (0.2-1.0); CO2 34.2 mmol/L (21.0-32.0); Calcium 9.3 mg/dL (8.5-10.1); Chloride 103 mmol/L (98-107); Estimated GFR 67.78 (mL/min/1.73m2); Glucose 168 mg/dL (74-106); Potassium 3.7 mmol/L (3.5-5.1); Sodium 140 mmol/L (136-145); Total Protein 6.5 g/dL (6.4-8.2)
[2025-02-27 19:46] LABS: D-Dimer 800 ng/mlFEU (<500)
[2025-02-27 20:34] VITALS: BP 111/46; PULSE 88; RESP 18; O2SAT 89
== END 2025-02-27 20:36 | disposition home or self-care (01) ==
PROVIDERS: Emergency Provider Physician Assistant; PCP Internal Medicine
DX: M79.604 Pain in right leg (principal)
CPT/HCPCS: 36415; 80053; 99283; 85025; 85379; 85610; 85730

== ENCOUNTER 2025-02-28 14:49 | Outpatient (CLI) | payer MEDICARE, SELFPAY ==
--- NOTE | 2025-02-28 20:22 | DI.US_ITS ---
Exam(s) US LOWER EXTREMITY VENOUS RT EXAM: US LOWER EXTREMITY VENOUS RT CLINICAL HISTORY: swelling pain, hx of dvt TECHNIQUE: Grayscale, color, and doppler imaging of the deep venous system of the right lower extremity was performed. COMPARISON: No exams were available for comparison FINDINGS: There is no evidence of intraluminal thrombus and there is normal compression and augmentation demonstrated within the common femoral vein, femoral vein, and popliteal vein. In the ipsilateral calf the interrogated veins also exhibit normal compression/ augmentation properties. The ipsilateral saphenofemoral junction is patent. IMPRESSION: 1. No evidence of DVT in the right lower extremity. Called by myself to ER 02/28/2025 at 3:40 p.m. DATA REPOSITORY:
== END 2025-02-28 15:09 ==
PROVIDERS: PCP Internal Medicine; Visit Provider Physician Assistant
DX: R22.41 Localized swelling, mass and lump, right lower limb (principal)
CPT/HCPCS: 93971

== ENCOUNTER 2025-02-28 15:52 | Emergency (ER) | payer MEDICARE, SELFPAY ==
[2025-02-28 15:55] VITALS: BP 125/60; PULSE 80; RESP 20; TEMP 37.1; O2SAT 98
--- NOTE | 2025-02-28 16:06 | ED.GENADUL_ITS ---
Discharge Plan Disposition Patient Disposition: Home Condition: Stable Discharge Details Clinical Impression: Cellulitis of right leg Primary Care Provider: Silvestre Lakhani ED Provider: Claudia Edmond Home Meds and New Rx's Prescriptions: New doxycycline hyclate 100 mg tablet 100 mg PO BID 10 Days Qty: 20 0RF Rx Instructions: Take one tablet by mouth twice daily x 10 days Continued diazepam 5 mg tablet 5 mg PO DAILY PRN diazepam 10 mg tablet 10 mg PO DAILY PRN estradiol 0.075 mg/24 hr patch weekly 1 patch transdermal QWEEK gabapentin 400 mg capsule 800 mg PO BID Incruse Ellipta 62.5 mcg/actuation blister with device 1 inh inhalation DAILY levothyroxine 100 mcg tablet 150 mcg PO DAILY methocarbamol 500 mg tablet 500 mg PO TID quetiapine [Seroquel] 200 mg tablet 300 mg PO TID ipratropium-albuterol 0.5 mg-3 mg(2.5 mg base)/3 mL solution for nebulization 3 ml inhalation QID PRN prazosin [Minipress] 5 mg Capsule 5 mg PO HS albuterol 90 mcg/actuation Aerosol 90 mcg INHALATION PRN PRN Eliquis 5 mg tablet 5 mg PO BID Patient Comments: TAKE 2 TABLETS BY MOUTH TWICE DAILY FOR 6 DAYS THEN 1 TWICE DAILY FOR 30 DAYS vilazodone 20 mg tablet 20 mg PO DAILY Patient Comments: TAKE 1 TABLET BY MOUTH ONCE DAILY Discharge Instructions Instructions: Cellulitis (Skin Infection), Adult ED Additional Instructions: * At this time it appears you have a skin infection or cellulitis to your lower leg. Ultrasound was negative for blood clot. * Please give the antibiotics 3-5 days to kick in. * * Return to ED if any redness increases to knee or you begin feeling worse with fever over 100.8, chills, weakness, or concerns. * * Elevate you leg and apply ice and compression socks for pain relief. Do not walk barefoot if possible. * * Keep your previously scheduled appt with your PCP for a re-check next week. * * Thank you for allowing us to care for you. Referrals: [facility] [Outside] Referral Note: ER follow up, return if worse Clinical Impression: Cellulitis of right leg Silvestre Lakhani [Primary Care Provider, Medicine] - 1 week HPI General Mode of arrival: wheelchair . Date/Time Provider Initiated Documentation: 02/28/25 15:54 . Limitations to Documentation: no limitations . Information obtained by: patient, family, RN notes reviewed and old records reviewed . HPI Narrative: 54 year old female presents for recheck after being seen in ED yesterday and here for US results. Patient states redness and pain has worsened. US is negative for DVT. Erythema extends up to proximal anterior valero and dorsal fooot, Denies recent injuries, fever or chills. Patient has multiple Allergies to abx. Will treat for possible cellulitis with Doxycyline as this the patient reports she can take. Will encourage her to keep her upcoming PCP appt next week as previously scheduled. Related Data Home Medications ?Medication ?Instructions ?Recorded ?Confirmed albuterol 90 mcg/actuation aerosol 90 mcg inhalation P RN PRN 12/03/22 02/28/25 inhaler prazosin 5 mg capsule (Minipress) 5 mg PO HS 12/18/22 02/28/25 diazepam 10 mg tablet 10 mg PO DAILY PRN 07/10/24 02/28/25 diazepam 5 mg tablet 5 mg PO DAILY PRN 07/10/24 0 02/28/25 estradiol 0.075 mg/24 hr weekly 1 patch transdermal QW [place] 07/10/24 02/28/25 transdermal patch gabapentin 400 mg capsule 800 mg PO BID 07/10/2402/28 levothyroxine 100 mcg tablet 150 mcg PO DAILY 07/10/24 02/28/25 methocarbamol 500 mg tablet 500 mg PO TID 07/10/2406/12 quetiapine 200 mg tablet (Seroquel) 300 mg PO TID 06/2002/28/25 umeclidinium 62.5 mcg/actuation 1 inh inhalation DAILY 07/10/24 02/28/25 blister powder for inhalation (Incruse Ellipta) ipratropium 0.5 mg-albuterol 3 mg 3 ml inhalation QID PRN 07/15/24 02/28/25 (2.5 mg base)/3 mL nebulization soln apixaban 5 mg tablet (Eliquis) 5 mg PO BID 02/27/25 doxycycline hyclate 100 mg tablet 100 mg PO BID Cellul itis 10 days 02/28/25 #20 tabs vilazodone 20 mg tablet 20 mg PO DAILY 02/28/2502/17 Previous Rx's ?Medication ?Instructions ?Recorded doxycycline hyclate 100 mg tablet 100 mg PO BID Cellul itis 10 days 02/28/25 #20 tabs Allergies Allergy/AdvReac Type Severity Reaction Status Date / Time erythromycin base Allergy Severe Anaphylaxis Unverified 02/28/25 16:00 Sulfa (Sulfonamide Allergy Severe Anaphylaxis Unverified 02/28/25 16:00 Antibiotics) azithromycin Allergy Intermediate Skin Rash Verified 02/28/25 16:00 Penicillins Allergy Intermediate Skin Rash Unverified 02/28/25 16:00 sulindac Allergy Intermediate Hives Verified 02/28/25 16:00 amitriptyline AdvReac Intermediate Cardiac Verified 02/28/25 16:00 Dysrhythmia carbamazepine AdvReac Intermediate Other (See Verified 02/28/25 16:00 Comment) cefpodoxime AdvReac Intermediate Other (See Verified 02/28/25 16:00 Comment) sumatriptan AdvReac Intermediate Other (See Verified 02/28/25 16:00 Comment) topiramate AdvReac Intermediate Nausea Verified 02/28/25 16:00 fluoxetine AdvReac Mild Agitation Verified 02/28/25 16:00 baclofen AdvReac Unknown Unknown Verified 02/28/25 16:00 bupropion AdvReac Unknown Unknown Verified 02/28/25 16:00 levofloxacin AdvReac Unknown Unknown Verified 02/28/25 16:00 ketorolac (From Toradol) AdvReac Skin Rash Unverified 02/28/25 16:00 NSAIDS (Non-Steroidal AdvReac Skin Rash Unverified 02/28/25 16:00 Anti-Inflamma tramadol AdvReac Skin Rash Unverified 02/28/25 16:00 General Stated Complaint: Recheck CLAYTON: 3 Exam Const General: cooperative and ill appearing chronically Nutritional Appearance: overweight Orientation: alert, awake and oriented x3 Extrem Left lower extremity: normal to inspection Upper/lower leg/hip images: 2 1. Erythema, swelling and tenderness to palpation Course Vital Signs Vital signs: Vital Signs Temperature 37.1 C 02/28/25 15:55 Pulse 80 02/28/25 15:55 Respiratory Rate 20 02/28/25 15:55 Blood Pressure 125/60 02/28/25 15:55 Pulse Oximetry 98 02/28/25 15:55 Temperature 37.1 C 02/28/25 15:55 Pulse 80 02/28/25 15:55 Respiratory Rate 20 02/28/25 15:55 Blood Pressure 125/60 02/28/25 15:55 Pulse Oximetry 98 02/28/25 15:55 Pain Level 5 02/28/25 15:55 Medical Decision Making Ultrasound is negative for any evidence of DVT. Based on patient's symptoms we will treat for possible cellulitis with doxycycline as patient states that this is safe for her to take. I did discuss home care, observation and follow-up care with patient and caregiver they verbalized understanding. Patient given the first dose of 100 mg doxycycline here in the emergency department and instructed to elevate her leg and apply ice and compression socks as needed. Discussed strict return instructions. Instructed to return for any signs of infection, weakness, extending redness after 3 days of the antibiotics or any concerns. This text was generated using [employer] dictation system, please disregard any oddities of phrase or misspellings. Quality:SDOH Health Related Social Needs: 2 Health related social needs details no private area to discuss screening questions PFSH All Active Problems (Updated 02/28/25 @ 16:10 by Claudia Edmond NP) Cellulitis of right leg (Acute) Leg pain, right (Acute) Medical History History of behavioral and mental health problems Thyroid disease Social History Smoking/Tobacco Use Status: Current every day Tobacco Type: cigarettes Years smoked: 37 Smoking risk assessment performed?: Yes Alcohol Intake: never Drug use: Occasionally Substance use type: marijuana Housing: house Do you feel safe at home: Yes Do you feel safe in your relationship?: Yes
[2025-02-28] MEDS: Doxycycline Hyclate 100 MG CAP PO (16:15)
== END 2025-02-28 16:31 | disposition home or self-care (01) ==
LOC: ER 16:19
PROVIDERS: Emergency Provider Registered Nurse Emergency; PCP Internal Medicine
DX: L03.115 Cellulitis of right lower limb (principal)
CPT/HCPCS: 99283 ×2

== ENCOUNTER 2025-03-04 14:23 | Emergency (ER) | payer MEDICARE, SELFPAY ==
[2025-03-04 14:29] VITALS: BP 139/91; PULSE 96; RESP 20; TEMP 36.8; O2SAT 95
--- NOTE | 2025-03-04 14:45 | DI.CT_ITS ---
Exam(s) CT LOWER EXTREMITY RT W EXAM: CT LOWER EXTREMITY RT W CLINICAL HISTORY: Knee to foot swelling, recent cellulitis. TECHNIQUE: Imaging Protocol: Axial computed tomography images with coronal and sagittal reformatted images were created and reviewed. CONTRAST MATERIAL: Intravenous: Omnipaque 350 Contrast volume:100 contrast route:IV - COMPARISON: No exams were available for comparison FINDINGS: OSSEOUS: No evidence of fractures. There is evidence of prior ACL surgery and there are significant degenerative changes in the knee joint. There is a small amount of increased joint fluid in the knee joint. There are no fractures in the foot. No erosions nor evidence of osteomyelitis. MR toe deformity of the toes evident no pes planus. SOFT TISSUES: There is circumferential edema in the lower leg and calf. Has appearance of diffuse cellulitis pattern. There is no obvious skin ulcer or radiopaque foreign body in the calf and foot. No evidence of osteomyelitis. No focal abscess evident. IMPRESSION: Diffuse edema. No distinct abscess. No radiopaque foreign body. No evidence of osteomyelitis. Report called by myself to ER on 03/04/2025 at 4:30 p.m. RADIATION DOSE DELIVERED: 507.42mGy.cm Total DLP DATA REPOSITORY: All CT scans at this facility are submitted to the National Radiology Data Registry (NRDR) Dose Index Registry (DIR) with the [employer] ([employer]). RADIATION OPTIMIZATION: All CT scans at this facility use at least one of these dose optimization techniques: automated exposure control; mA and/or kV adjustment per patient size (includes targeted exams where dose is matched to clinical indication); or iterative reconstruction.
--- NOTE | 2025-03-04 15:10 | ED.GENADUL_ITS ---
Discharge Plan Disposition Patient Disposition: Home Condition: Stable Discharge Details Clinical Impression: Cellulitis of right leg Primary Care Provider: Silvestre Lakhani ED Provider: Aleida Suarez Home Meds and New Rx's Prescriptions: No Action diazepam 5 mg tablet 5 mg PO DAILY PRN diazepam 10 mg tablet 10 mg PO DAILY PRN estradiol 0.075 mg/24 hr patch weekly 1 patch transdermal QWEEK gabapentin 400 mg capsule 800 mg PO BID Incruse Ellipta 62.5 mcg/actuation blister with device 1 inh inhalation DAILY levothyroxine 100 mcg tablet 150 mcg PO DAILY methocarbamol 500 mg tablet 500 mg PO TID quetiapine [Seroquel] 200 mg tablet 300 mg PO TID ipratropium-albuterol 0.5 mg-3 mg(2.5 mg base)/3 mL solution for nebulization 3 ml inhalation QID PRN prazosin [Minipress] 5 mg Capsule 5 mg PO HS albuterol 90 mcg/actuation Aerosol 90 mcg INHALATION PRN PRN Eliquis 5 mg tablet 5 mg PO BID Patient Comments: TAKE 2 TABLETS BY MOUTH TWICE DAILY FOR 6 DAYS THEN 1 TWICE DAILY FOR 30 DAYS vilazodone 20 mg tablet 20 mg PO DAILY Patient Comments: TAKE 1 TABLET BY MOUTH ONCE DAILY doxycycline hyclate 100 mg tablet 100 mg PO BID 10 Days Qty: 20 0RF Rx Instructions: Take one tablet by mouth twice daily x 10 days Discharge Instructions Instructions: Cellulitis (Skin Infection), Adult ED Additional Instructions: You were seen in the emergency department today for evaluation of ongoing pain in your right lower extremity, likely due to cellulitis. You had a CT scan that did not show any other abnormalities, had a laboratory workup that was reassuring, and received medications for pain. I do recommend that you complete the entire course of doxycycline you were given at our emergency department last visit, even if you start to feel better. I have sent you home with a short course of oral oxycodone to use for severe breakthrough pain. A referral was placed to establish with the podiatry team at [facility]. Please follow-up with your primary care provider in the next few days to discuss this visit and any symptoms that change, worsen, or persist. Thank you for allowing us to be part of your care. Referrals: [facility] [Provider Group] - 1 week HPI General Mode of arrival: ambulatory . Date/Time Provider Initiated Documentation: 03/04/25 14:29 . Limitations to Documentation: no limitations . Information obtained by: patient, family and old records reviewed . HPI Narrative: This is a 54-year-old female patient with a past medical history significant for pulmonary embolism on Eliquis, right knee osteoarthritis, and a several month history of right ankle and foot pain, recently seen in our emergency department few days ago and treated for cellulitis, presenting for ongoing pain and swelling. The patient reports that she has been taking her doxycycline as prescribed, has noted that the redness has improved but her swelling and pain has not. The swelling extends to the proximal valero, and the pain makes it difficult for her to walk and get around. She has a number of medication allergies and has not been able to take any [id number] medications. Her primary care provider attempted to prescribe a novel pain management medication which unfortunately was prohibitively expensive. She [place] [facility] [place] until April of this year. She has been seen by rheumatology for a presumptive diagnosis of gout, though she questions whether or not this is truly the case. The patient had a DVT ultrasound that did not show any evidence of clots, has been taking her blood thinners without change, denies numbness or tingling in the foot. She states that she has not sustained trauma or injury to the area. Related Data Home Medications ?Medication ?Instructions ?Recorded ?Confirmed albuterol 90 mcg/actuation aerosol 90 mcg inhalation P RN PRN 12/03/22 03/04/25 inhaler prazosin 5 mg capsule (Minipress) 5 mg PO HS 12/18/22 03/04/25 diazepam 10 mg tablet 10 mg PO DAILY PRN 07/10/24 03/04/25 diazepam 5 mg tablet 5 mg PO DAILY PRN 07/10/24 0 03/04/25 estradiol 0.075 mg/24 hr weekly 1 patch transdermal QW [place] 07/10/24 03/04/25 transdermal patch gabapentin 400 mg capsule 800 mg PO BID 07/10/2403/04 levothyroxine 100 mcg tablet 150 mcg PO DAILY 07/10/24 03/04/25 methocarbamol 500 mg tablet 500 mg PO TID 07/10/24 quetiapine 200 mg tablet (Seroquel) 300 mg PO TID 06/2003/04/25 umeclidinium 62.5 mcg/actuation 1 inh inhalation DAILY 07/10/24 03/04/25 blister powder for inhalation (Incruse Ellipta) ipratropium 0.5 mg-albuterol 3 mg 3 ml inhalation QID PRN 07/15/24 03/04/25 (2.5 mg base)/3 mL nebulization soln apixaban 5 mg tablet (Eliquis) 5 mg PO BID 02/27/25 doxycycline hyclate 100 mg tablet 100 mg PO BID Cellul itis 10 days 02/28/25 03/04/25 #20 tabs vilazodone 20 mg tablet 20 mg PO DAILY 02/28/2502/17 Previous Rx's ?Medication ?Instructions ?Recorded doxycycline hyclate 100 mg tablet 100 mg PO BID Cellul itis 10 days 02/28/25 #20 tabs Allergies Allergy/AdvReac Type Severity Reaction Status Date / Time erythromycin base Allergy Severe Anaphylaxis Unverified 03/04/25 14:36 Sulfa (Sulfonamide Allergy Severe Anaphylaxis Unverified 03/04/25 14:36 Antibiotics) azithromycin Allergy Intermediate Skin Rash Verified 03/04/25 14:36 Penicillins Allergy Intermediate Skin Rash Unverified 03/04/25 14:36 sulindac Allergy Intermediate Hives Verified 03/04/25 14:36 amitriptyline AdvReac Intermediate Cardiac Verified 03/04/25 14:36 Dysrhythmia carbamazepine AdvReac Intermediate Other (See Verified 03/04/25 14:36 Comment) cefpodoxime AdvReac Intermediate Other (See Verified 03/04/25 14:36 Comment) sumatriptan AdvReac Intermediate Other (See Verified 03/04/25 14:36 Comment) topiramate AdvReac Intermediate Nausea Verified 03/04/25 14:36 fluoxetine AdvReac Mild Agitation Verified 03/04/25 14:36 baclofen AdvReac Unknown Unknown Verified 03/04/25 14:36 bupropion AdvReac Unknown Unknown Verified 03/04/25 14:36 levofloxacin AdvReac Unknown Unknown Verified 03/04/25 14:36 ketorolac (From Toradol) AdvReac Skin Rash Unverified 03/04/25 14:36 NSAIDS (Non-Steroidal AdvReac Skin Rash Unverified 03/04/25 14:36 Anti-Inflamma tramadol AdvReac Skin Rash Unverified 03/04/25 14:36 General Stated Complaint: Recheck CLAYTON: 4 Exam Narrative Exam Narrative: Gen: Awake and alert, tearful HEENT: Non-icteric sclera Neck: Supple Lungs: No apparent respiratory distress, normal respiratory effort. CV: Appears well perfused, heart with regular rate and rhythm Abdomen: Non-distended MSK: Moves 4 extremities without apparent limitation in ROM. The patient does have 2+ peripheral edema to the right lower extremity from the foot to the proximal valero, though minimal redness, warmth, or induration is noted, presumed improved from prior exam. She has strong DP pulses of the affected right foot and a preserved neurovascular examination distal to the swelling. I note no palpable areas of fluctuance. Skin: Visualized skin without rashes, cyanosis. Neuro: Normal Gait, no obvious focal deficits or facial asymmetry. Speaks in full, clear sentences. Psych: Appropriate for situation. Course Vital Signs Vital signs: Vital Signs Temperature 36.8 C 03/04/25 14:29 Pulse 96 H 03/04/25 14:29 Respiratory Rate 20 03/04/25 14:29 Blood Pressure 139/91 H 03/04/25 14:29 Pulse Oximetry 95 03/04/25 14:29 Temperature 36.8 C 03/04/25 14:29 Pulse 96 H 03/04/25 14:29 Respiratory Rate 20 03/04/25 14:29 Blood Pressure 139/91 H 03/04/25 14:29 Pulse Oximetry 95 03/04/25 14:29 Pain Level 10 03/04/25 14:29 Medical Decision Making This is a 54-year-old female patient presenting for evaluation of unilateral leg swelling and pain for the last several months. Differential includes but is not limited to ongoing cellulitis, though she has noted improvement, considered abscess and deep space infection such as myositis or osteomyelitis. This patient is anticoagulated and had a negative DVT study within the last few days, reassuring against venous thrombosis. Her strong distal pulses, and lack of neurovascular deficit, pallor, or temperature changes reassures me against arterial occlusion. No overlying skin changes concerning for zoster. The duration of symptoms, the lack of redness and the failure of response to prednisone, colchicine, etc. is slightly less suggestive of gout and crystal arthropathy, certainly considered osteoarthritis given the patient's history of same in her knee. No fever or systemic symptoms to suggest septic arthritis or sepsis, no redness or limitation in passive range of motion. After reviewing the patient's chart and workup, I feel it is reasonable to pr oceed with CT with contrast to evaluate for deep space infection and other abnormalities which might explain her symptoms. Will repeat labs to include CBC, CMP, magnesium, and after a discussion regarding the patient's allergies, we will provide her with a dose of oral oxycodone for pain management. - I reviewed the patient's laboratory studies, which show no leukocytosis or anemia, platelets are aggregated which they have been in the past preventing accurate count. Chemistry panel without electrolyte derangement, evidence of kidney dysfunction or liver disease. CT reviewed by myself, showing evidence of diffuse cellulitis but no abscess, bony abnormalities or other significant findings to explain the patient's symptoms. I counseled her on needing to complete the entire course of do xycycline given her evidence of some improvement, and provided her with a referral to podiatry for ongoing management of her right foot and ankle pain. I provided her with a take-home pack of three 5 mg oxycodones for use for severe pain. At this time, the patient has had a full medical evaluation and is safe for discharge to home. They are hemodynamically stable, ambulatory, and tolerating PO. They are understanding of the follow-up plan and return precautions. They left our facility without incident. Aleida Suarez MD Quality:SDOH Health Related Social Needs: Health related social needs details no private area to discuss screening questions PFSH All Active Problems (Updated 03/04/25 @ 16:54 by Aleida Suarez MD) Cellulitis of right leg (Acute) Leg pain, right (Acute) Medical History History of behavioral and mental health problems Thyroid disease Social History Smoking/Tobacco Use Status: Current every day Tobacco Type: cigarettes Years smoked: 37 Smoking risk assessment performed?: Yes Alcohol Intake: never Drug use: Occasionally Substance use type: marijuana Housing: house Do you feel safe at home: Yes Do you feel safe in your relationship?: Yes
[2025-03-04] MEDS: oxyCODONE 5 MG TAB PO (15:30)
[2025-03-04 15:39] LABS: Abs Immature Grans 0.07 10^3/uL (0.0-0.06); HCT 45.6 % (36.0-46.0); HGB 14.7 g/dL (11.2-15.7); Immature Grans % 0.7 %; MCH 31.1 pg (27.0-33.0); MCHC 32.2 % (32.0-36.0); MCV 97 fL (80-95); RBC 4.72 10^6/uL (3.93-5.22); RDW 14.4 % (11.7-14.6); RDW-SD 51.2 fL; WBC 10.01 10^3/uL (4.4-10.8)
[2025-03-04] MEDS: Normal Saline - Diluent 50 ML VIAL IJ (15:58)
[2025-03-04] MEDS: Omnipaque 350 MG/ML 100 ML BTL IJ (15:59)
[2025-03-04] MEDS: Normal Saline Flush 10 ML SYR IVP (15:59)
[2025-03-04 16:02] LABS: ALT 22 U/L (14-59); AST 13 U/L (15-37); Albumin 2.9 g/dL (3.4-5.0); Alkaline Phosphatase 102 U/L (46-116); Anion Gap 9.2 mmol/L (3-11); BUN 12 mg/dL (7-18); Bilirubin, Total 0.3 mg/dL (0.2-1.0); CO2 27.8 mmol/L (21.0-32.0); Calcium 9.6 mg/dL (8.5-10.1); Chloride 101 mmol/L (98-107); Estimated GFR 67.78 (mL/min/1.73m2); Glucose 192 mg/dL (74-106); Magnesium 1.9 mg/dL (1.8-2.4); Potassium 4.1 mmol/L (3.5-5.1); Sodium 138 mmol/L (136-145); Total Protein 7.3 g/dL (6.4-8.2)
[2025-03-04 16:11] LABS: RBC Morphology Normal
[2025-03-04] MEDS: oxyCODONE 5 MG TAB 15 MG PO (17:15)
== END 2025-03-04 17:16 | disposition home or self-care (01) ==
PROVIDERS: Emergency Provider Emergency Medicine; PCP Internal Medicine
DX: L03.115 Cellulitis of right lower limb (principal); F17.210 Nicotine dependence, cigarettes, uncomplicated; Z86.711 Personal history of pulmonary embolism; Z79.01 Long term (current) use of anticoagulants
CPT/HCPCS: 80053; 99285; 73701; 83735; 85025; 99284; J3490

== ENCOUNTER → 2025-03-26 11:29 | Outpatient (BNVA) | payer MEDICARE, SELFPAY | PROVIDERS: PCP Nurse Practitioner Family; Referring Provider Nurse Practitioner Family; Visit Provider Podiatrist | DX: M79.671 Pain in right foot (principal); M79.672 Pain in left foot; M25.571 Pain in right ankle and joints of right foot; M79.604 Pain in right leg; F60.3 Borderline personality disorder; G25.81 Restless legs syndrome; E11.9 Type 2 diabetes mellitus without complications; F32.A Depression, unspecified; F11.10 Opioid abuse, uncomplicated; F43.10 Post-traumatic stress disorder, unspecified | CPT/HCPCS: 99215; 29580; 29850 ==

== ENCOUNTER 2025-03-26 12:56 | Outpatient (CLI) | payer MEDICARE, SELFPAY ==
[2025-03-26 12:55] LABS: Abs Immature Grans 0.10 10^3/uL (0.0-0.06); HCT 43.5 % (36.0-46.0); HGB 13.7 g/dL (11.2-15.7); Immature Grans % 1.0 %; MCH 30.8 pg (27.0-33.0); MCHC 31.5 % (32.0-36.0); MCV 98 fL (80-95); MPV 10.5 fL (8.0-11.0); Platelet Count 146 10^3/uL (130-400); RBC 4.45 10^6/uL (3.93-5.22); RDW 14.8 % (11.7-14.6); RDW-SD 53.8 fL; WBC 10.40 10^3/uL (4.4-10.8)
[2025-03-26 13:02] LABS: ESR 14 mm/hr (0-30)
[2025-03-26 13:42] LABS: C-Reactive Protein 1.91 mg/dL (<or=0.5); Uric Acid 4.1 mg/dL (2.6-6.0)
== END 2025-03-26 12:57 | disposition home or self-care (01) ==
LOC: LBO 12:57
PROVIDERS: PCP Nurse Practitioner Family; Visit Provider Podiatrist
DX: L03.90 Cellulitis, unspecified (principal); E79.0 Hyperuricemia without signs of inflammatory arthritis and tophaceous disease
CPT/HCPCS: 29580; 36415; 85652; 99214; 29850; 73610; 73630; 84550; 85025; 86140

== ENCOUNTER → 2025-04-01 13:26 | Outpatient (BNVA) | payer MEDICARE, SELFPAY | PROVIDERS: PCP Nurse Practitioner Family; Referring Provider Nurse Practitioner Family; Visit Provider Physician Assistant | DX: M17.11 Unilateral primary osteoarthritis, right knee (principal); Z98.890 Other specified postprocedural states; Z68.42 Body mass index [BMI] 45.0-49.9, adult; Z79.01 Long term (current) use of anticoagulants | CPT/HCPCS: 99214 ==

== ENCOUNTER 2025-04-14 15:17 | Emergency (ER) | payer MEDICARE, SELFPAY ==
[2025-04-14 15:20] VITALS: BP 120/81; PULSE 99; RESP 16; TEMP 36.6; O2SAT 98
[2025-04-14 15:23] VITALS: BP 120/81; PULSE 99; RESP 16; TEMP 36.6; O2SAT 98
[2025-04-14 16:05] VITALS: RESP 18
[2025-04-14] MEDS: Cyclobenzaprine 10 MG TAB PO (16:08)
--- NOTE | 2025-04-14 16:25 | DI.RAD_ITS ---
Exam(s) XR HIP RT COMPLETE AP PELVIS EXAM: XR HIP RT COMPLETE AP PELVIS CLINICAL HISTORY: atraumatic R. lateral hip pain. TECHNIQUE: 2D digital imaging was performed. COMPARISON: No exams were available for comparison FINDINGS: Two views No evidence of pelvic nor hip fractures. Additional frog-lateral view of the right hip does not reveal joint space narrowing nor osteophytes. There is advanced disc space narrowing noted in the visualized lower lumbar spine. IMPRESSION: As above. DATA REPOSITORY: RADIATION DOSE DELIVERED:
--- NOTE | 2025-04-14 16:43 | W.ED.GENAD ---
Discharge Plan Disposition Patient Disposition: Home Condition: Stable Discharge Details Clinical Impression: Lateral pain of right hip Primary Care Provider: Gina Dong ED Provider: Aleida Suarez Home Meds and New Rx's Prescriptions: New prednisone 20 mg tablet 40 mg PO DAILY 4 Days Qty: 8 0RF Rx Instructions: Start 04/15/2025 No Action colchicine 0.6 mg tablet 0.6 mg PO BID duloxetine 30 mg capsule,delayed release(DR/EC) 30 mg PO BID diazepam 5 mg tablet 5 mg PO DAILY PRN diazepam 10 mg tablet 10 mg PO DAILY PRN estradiol 0.075 mg/24 hr patch weekly 1 patch transdermal QWEEK gabapentin 400 mg capsule 800 mg PO BID Incruse Ellipta 62.5 mcg/actuation blister with device 1 inh inhalation DAILY levothyroxine 100 mcg tablet 150 mcg PO DAILY methocarbamol 500 mg tablet 500 mg PO TID ipratropium-albuterol 0.5 mg-3 mg(2.5 mg base)/3 mL solution for nebulization 3 ml inhalation QID PRN quetiapine [Seroquel] 200 mg tablet 250 mg PO .COMPLEX Rx Instructions: 250 mg orally 1-2 TIMES PER DAY; prazosin [Minipress] 5 mg Capsule 5 mg PO HS albuterol 90 mcg/actuation Aerosol 90 mcg INHALATION PRN PRN Eliquis 5 mg tablet 5 mg PO BID Patient Comments: TAKE 2 TABLETS BY MOUTH TWICE DAILY FOR 6 DAYS THEN 1 TWICE DAILY FOR 30 DAYS vilazodone 20 mg tablet 20 mg PO DAILY Patient Comments: TAKE 1 TABLET BY MOUTH ONCE DAILY Discharge Instructions Instructions: Leg Pain (ED) Additional Instructions: You were seen in the emergency department today for evaluation of right hip and leg pain. In our department you had full physical examination performed, and had an x-ray that did not show any broken bones so some [id number] changes in your lower back. I have started you on a course of steroids to reduce inflammation that could be causing your pain, and recommend that you continue to use your topical therapies, as well as your home methocarbamol. I have sent you home with a short course of oral morphine to use for severe breakthrough pain. Please reach out to your primary care provider as long-term prescriptions for narcotics need to come from those long-term providers. A referral was placed by your business advisor to discuss potential nerve issues. Please follow-up with your primary care provider in the next few days to discuss this visit and any symptoms that change, worsen, or persist. Thank you for allowing us to be part of your care. Discharge Data Discharge Date/Time-TO BE ENTERED AT DEPARTURE: 04/14/25 17:38 HPI General Mode of arrival: wheelchair. Date/Time Provider Initiated Documentation: 04/14/25 15:24. Limitations to Documentation: no limitations. Information obtained by: patient, family and old records reviewed. HPI Narrative: This is a 54-year-old female patient with a past medical history significant for right knee DJD, peripheral neuropathy, diabetes, hypertension, COPD, bipolar, presenting for evaluation of right hip and leg pain. She reported that on Monday her pain started, was gradual in onset and not preceded by any trauma or injury. The pain is in her lateral right hip, and seems to radiate down the side of her leg. She has a long history of chronic pain that is difficult to manage given her numerous allergies, has been utilizing her capsaicin cream without effect. Denies new swelling, skin changes, numbness, tingling, or weakness of the affected extremity. Has not had fevers or chills, denies back pain. States that she had been seeing podiatry for her feet, and they recommended that she be seen by a neurologist to evaluate for nerve problems. Related Data Home Medications ?Medication ?Instructions ?Recorded ?Confirmed albuterol 90 mcg/actuation aerosol 90 mcg inhalation PRN PRN 12/03/22 04/14/25 inhaler prazosin 5 mg capsule (Minipress) 5 mg PO HS 12/18/22 04/14/25 diazepam 10 mg tablet 10 mg PO DAILY PRN 07/10/24 04/14/25 diazepam 5 mg tablet 5 mg PO DAILY PRN 07/10/24 04/14/25 estradiol 0.075 mg/24 hr weekly 1 patch transdermal QWEEK 07/10/24 04/14/25 transdermal patch gabapentin 400 mg capsule 800 mg PO BID 07/10/24 04/14/25 levothyroxine 100 mcg tablet 150 mcg PO DAILY 07/10/24 04/14/25 methocarbamol 500 mg tablet 500 mg PO TID 07/10/24 04/14/25 umeclidinium 62.5 mcg/actuation 1 inh inhalation DAILY 07/10/24 04/14/25 blister powder for inhalation (Incruse Ellipta) ipratropium 0.5 mg-albuterol 3 mg 3 ml inhalation QID PRN 07/15/24 04/14/25 (2.5 mg base)/3 mL nebulization soln apixaban 5 mg tablet (Eliquis) 5 mg PO BID 02/27/25 04/14/25 vilazodone 20 mg tablet 20 mg PO DAILY 02/28/25 04/14/25 colchicine 0.6 mg tablet 0.6 mg PO BID 04/01/25 04/14/25 duloxetine 30 mg capsule,delayed 30 mg PO BID 04/01/25 04/14/25 release quetiapine 200 mg tablet (Seroquel) 250 mg PO .COMPLEX 04/01/25 04/14/25 prednisone 20 mg tablet 40 mg (2 x 20 mg) PO DAILY 4 days 04/14/25 #8 tabs Previous Rx's ?Medication ?Instructions ?Recorded prednisone 20 mg tablet 40 mg (2 x 20 mg) PO DAILY 4 days 04/14/25 #8 tabs Allergies Allergy/AdvReac Type Severity Reaction Status Date / Time erythromycin base Allergy Severe Anaphylaxis Unverified 04/14/25 15:23 Sulfa (Sulfonamide Allergy Severe Anaphylaxis Unverified 04/14/25 15:23 Antibiotics) azithromycin Allergy Intermediate Skin Rash Verified 04/14/25 15:23 Penicillins Allergy Intermediate Skin Rash Unverified 04/14/25 15:23 sulindac Allergy Intermediate Hives Verified 04/14/25 15:23 amitriptyline AdvReac Intermediate Cardiac Verified 04/14/25 15:23 Dysrhythmia carbamazepine AdvReac Intermediate Other (See Verified 04/14/25 15:23 Comment) cefpodoxime AdvReac Intermediate Other (See Verified 04/14/25 15:23 Comment) sumatriptan AdvReac Intermediate Other (See Verified 04/14/25 15:23 Comment) topiramate AdvReac Intermediate Nausea Verified 04/14/25 15:23 fluoxetine AdvReac Mild Agitation Verified 04/14/25 15:23 baclofen AdvReac Unknown Unknown Verified 04/14/25 15:23 bupropion AdvReac Unknown Unknown Verified 04/14/25 15:23 levofloxacin AdvReac Unknown Unknown Verified 04/14/25 15:23 ketorolac (From Toradol) AdvReac Skin Rash Unverified 04/14/25 15:23 NSAIDS (Non-Steroidal AdvReac Skin Rash Unverified 04/14/25 15:23 Anti-Inflamma tramadol AdvReac Skin Rash Unverified 04/14/25 15:23 General Stated Complaint: GenMedical CLAYTON: 4 Exam Narrative Exam Narrative: Gen: Awake and alert, in no apparent distress HEENT: Non-icteric sclera Neck: Supple Lungs: No apparent respiratory distress, normal respiratory effort. CV: Appears well perfused Abdomen: Non-distended MSK: Moves 4 extremities without apparent limitation in ROM. The patient has tenderness to palpation overlying the lateral hip down along the IT band, with some muscular sore spots above the tensor fascia elena region. I note no lower extremity swelling, full range of motion of the knee without swelling, erythema or joint line tenderness. She has strong TP pulses, and no induration, redness, warmth. There is no tenderness to palpation of the lumbar spine, patient does have reproduction of pain with straight leg raise on the ipsilateral side. No overlying skin changes or CVA tenderness Skin: Visualized skin without rashes, cyanosis. Neuro: Normal Gait, no obvious focal deficits or facial asymmetry. Speaks in full, clear sentences. Psych: Appropriate for situation. Course Vital Signs Vital signs: Vital Signs Temperature 36.6 C 04/14/25 15:20 Pulse 99 H 04/14/25 15:20 Respiratory Rate 16 04/14/25 15:20 Blood Pressure 120/81 04/14/25 15:20 Pulse Oximetry 98 04/14/25 15:20 Temperature 36.6 C 04/14/25 15:23 Pulse 99 H 04/14/25 15:23 Respiratory Rate 18 04/14/25 16:05 Respiratory Effort Normal, Non-Labored 04/14/25 16:05 Respiratory Depth Normal 04/14/25 16:05 Respiratory Pattern Normal 04/14/25 16:05 Blood Pressure 120/81 04/14/25 15:23 Pulse Oximetry 98 04/14/25 15:23 Pain Level 9 04/14/25 15:23 Medical Decision Making This is a 54-year-old female patient presenting for evaluation of right lateral hip and leg pain. My differential includes but is not limited to IT band dysfunction, muscle spasm/strain, especially given her altered gait with her chronic knee pain. Considered sciatica, degenerative disc disease, spinal stenosis, osteoarthritis. My exam is less concerning for cellulitis, arterial occlusion, DVT, and the patient is appropriately anticoagulated on her Eliquis without recent change. We obtained an x-ray of the affected right hip, and I will provide the patient with a dose of Flexeril to trial for the muscular component of her pain. I do not see an indication at this time to proceed with laboratory studies or other advanced imaging. -X-ray reviewed, shows degenerative disc disease in her lumbar spine but no significant osteoarthritic changes in her right hip or other abnormalities to explain her symptoms. Given this finding, we will provide the patient with a steroid burst, I counseled her to continue her home methocarbamol and topical therapies and provided her with a short course of oral morphine, and she will need to reach out to her primary care provider/pain team to discuss further dosing. She already has a referral to neurology from podiatry. At this time, the patient has had a full medical evaluation and is safe for discharge to home. They are hemodynamically stable, ambulatory, and tolerating PO. They are understanding of the follow-up plan and return precautions. They left our facility without incident. Aleida Suarez MD Quality:SDOH Health Related Social Needs: Health related social needs details no private area to discuss screening questions PFSH All Active Problems (Updated 04/14/25 @ 16:48 by Aleida Suarez MD) Lateral pain of right hip (Acute) Peripheral neuropathy (Acute) Degenerative joint disease of right knee (Chronic) [facility] 02/07/25, 09/13 [place] (lasted 4-5 wks) Pain in right foot (Acute) Pain in left foot (Acute) Pain in right ankle (Acute) Cellulitis (Acute) Intellectual disability (Acute) Restless leg syndrome (Acute) PTSD (post-traumatic stress disorder) (Acute) T2DM (type 2 diabetes mellitus) (Acute) Hypothyroid (Chronic) Hypertensive disorder (Chronic) Opioid abuse (Acute) Leg edema (Acute) Diabetes mellitus (Chronic) Depression (Chronic) Chronic ulcer of skin (Acute) COPD (chronic obstructive pulmonary disease) (Chronic) Borderline personality disorder (Acute) Bipolar 1 disorder (Acute) Adjustment disorder (Chronic) Anxiety (Chronic) Medical History (Updated 04/14/25 @ 16:48 by Aleida Suarez MD) History of behavioral and mental health problems Thyroid disease Surgical History (Updated 04/01/25 @ 14:56 by Aidee Ge) Hx of knee surgery Reported right ACL in early H/O hernia repair H/O total hysterectomy H/O gastric bypass Bariatric surgery status Social History Smoking/Tobacco Use Status: Current every day Tobacco Type: cigarettes Years smoked: 37 Smoking risk assessment performed?: Yes Alcohol Intake: never Drug use: Occasionally Substance use type: marijuana Housing: house Do you feel safe at home: Yes Do you feel safe in your relationship?: Yes
[2025-04-14] MEDS: MORPHine IR 15 MG TAB, 4 TABS/BTL PO (17:25)
[2025-04-14] MEDS: predniSONE 20 MG TAB 40 MG PO ×2 (17:25)
[2025-04-14 17:36] VITALS: BP 144/105; PULSE 86; RESP 18; TEMP 36.8; O2SAT 98
== END 2025-04-14 17:38 | disposition home or self-care (01) ==
PROVIDERS: Emergency Provider Emergency Medicine; PCP Nurse Practitioner Family
DX: M25.551 Pain in right hip (principal); I10 Essential (primary) hypertension; E11.40 Type 2 diabetes mellitus with diabetic neuropathy, unspecified; J44.9 Chronic obstructive pulmonary disease, unspecified; F17.210 Nicotine dependence, cigarettes, uncomplicated; Z86.73 Personal history of transient ischemic attack (TIA), and cerebral infarction without residual deficits; Z98.84 Bariatric surgery status; Z79.01 Long term (current) use of anticoagulants
CPT/HCPCS: 99283; 73502; J7512

== ENCOUNTER 2025-05-01 11:26 | Emergency (ER) | payer MEDICARE, SELFPAY ==
[2025-05-01 11:33] VITALS: BP 120/83; PULSE 92; RESP 18; TEMP 36.8; O2SAT 88
[2025-05-01] MEDS: MORPHine IR 15 MG TAB PO (12:32)
[2025-05-01 12:42] VITALS: BP 112/79; PULSE 88; RESP 20; O2SAT 91
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
== END 2025-05-01 12:47 | disposition home or self-care (01) ==
PROVIDERS: Emergency Provider Physician Assistant; PCP Nurse Practitioner Family
DX: M79.604 Pain in right leg (principal); V49.9XXA Car occupant (driver) (passenger) injured in unspecified traffic accident, initial encounter
CPT/HCPCS: 99283 ×2

== ENCOUNTER 2025-05-23 11:47 | Emergency (ER) | payer MEDICARE, SELFPAY ==
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
[2025-05-23 12:00] VITALS: BP 113/79; PULSE 87; RESP 18; TEMP 36.9; O2SAT 89
[2025-05-23] MEDS: Ondansetron O.D.T. 4 MG TABEF PO (12:44)
[2025-05-23] MEDS: Acetaminophen 500 MG TAB 1000 MG PO (12:44)
[2025-05-23] MEDS: Gabapentin 300 MG CAP 600 MG PO (12:45)
--- NOTE | 2025-05-23 13:02 | DI.RAD_ITS ---
Exam(s) XR KNEE RT 3V AP,LAT,GENTRY EXAM: XR KNEE RT 3V AP,LAT,GENTRY CLINICAL HISTORY: Right knee pain. TECHNIQUE: 2D digital imaging was performed. COMPARISON: No exams were available for comparison FINDINGS: 3 views There is evidence of previous ACL surgery in the right knee. There is no evidence of acute fracture but there does appear to be a joint effusion. There are moderate degenerative changes in the medial and lateral compartments. There is also a suggestion of a calcified loose intra-articular body in the medial aspect of the lateral compartment. No osteochondral defects evident. Incidentally noted are enthesophytes off both the anterosuperior aspect of the patella (quadriceps tendon insertion site) as well as off the anterior inferior aspect of the patella (patellar ligament attachment site). IMPRESSION: Previous ACL surgery. No acute fractures evident but there is a joint effusion signifying internal derangement. Moderate degenerative changes evident as described above and there also appears to be a calcified loose body in the lateral compartment of the knee joint. DATA REPOSITORY: RADIATION DOSE DELIVERED:
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
--- NOTE | 2025-05-24 16:22 | NUR.NOTE ---
Access chart to print the demographic sheet for [facility] billing requisition. Nursing Note:
== END 2025-05-23 14:04 | disposition home or self-care (01) ==
PROVIDERS: Emergency Provider Emergency Medicine; PCP Nurse Practitioner Family
DX: M79.601 Pain in right arm (principal); M25.561 Pain in right knee; W06.XXXA Fall from bed, initial encounter
CPT/HCPCS: 99283; 99284; 73562; 71045